=== PATIENT | male | born 1945 | race Two or more races ===

== ENCOUNTER 2022-03-06 14:50 | Inpatient (IN) | payer OTHER, MEDICAID ==
[~2022-03-06] VITALS: Ht 182.9 cm; Wt 78.5 kg
[2022-03-06] MEDS ORDERED: SODIUM CHLORIDE 0.9% 1000ML BAG (SEPSIS BOLUS) IV ONE (15:00)
[2022-03-06 15:14] LABS: BG BASE EXCESS -1.7 mmol/L (-2.0-2.0); BG CARBOXYHEMOGLOBIN 0.5 % (0.5-1.5); BG DEOXYHEMOGLOBIN 0.6 % (0.0-5.0); BG FRACTION INSPIRED OXYGEN 100; BG METHEMOGLOBIN 0.5 % (0.0-1.5); BG OXYGEN SATURATION 99.4 % (92.0-98.5); BG OXYHEMOGLOBIN 98.4 % (94.0-97.0); BG PCO2 29.3 mmHg (35.0-45.0); BG PH 7.473 (7.350-7.450); BG PO2 235.5 mmHg (75.0-100.0); BG SAMPLE SITE RIGHT RADIAL; BG TOTAL HEMOGLOBIN 11.8 g/dL (12.0-18.0); BG VENT MODE MASK - NRB
[2022-03-06 15:25] LABS: BASOPHILS % 0.4 % (0.0-2.0); EOSINOPHILS % 0.5 % (0.0-5.0); HEMATOCRIT. 34.4 % (42.0-52.0); HEMOGLOBIN. 11.4 g/dL (14.0-18.0); MEAN CORPUSCULAR HEMOGLOBIN 30.1 pg (28.0-32.0); MEAN CORPUSCULAR VOLUME 90.8 fL (80.0-94.0); MEAN PLATELET VOLUME 9.7 fl (7.4-10.4); MONOCYTES % 8.3 % (2.0-8.0); NEUTROPHILS % 73.8 % (40.0-76.0); PLATELET 117 x1000/uL (130-400); RED BLOOD CELL COUNT 3.79 mill/uL (4.7-6.1); RED CELL DISTRIBUTION WIDTH 16.4 % (11.6-14.6)
[2022-03-06 15:34] LABS: CHLORIDE 107 mEq/L (98-107)
[2022-03-06 15:36] LABS: INR 1.5; PROTHROMBIN TIME 15.2 sec (9.6-11.0)
[2022-03-06 15:45] LABS: CREATINE KINASE 48 IU/L (39-308)
[2022-03-06 15:53] LABS: CLARITY URINE CLEAR (CLEAR); COLOR URINE DARK YELLOW (YELLOW); KETONES URINE TRACE (NEGATIVE); LEUKOCYTE ESTERASE URINE NEGATIVE (NEGATIVE); NITRITE URINE NEGATIVE (NEGATIVE); OCCULT BLOOD URINE 2+ (NEGATIVE); PH URINE 7.5 (4.5-8.0); PROTEIN URINE NEGATIVE (NEGATIVE); SPECIFIC GRAVITY URINE 1.016 (1.005-1.030)
[2022-03-06] MEDS ORDERED: VANCOMYCIN 1G PREMIX 200 ML IV ONE (16:45)
[2022-03-06] MEDS ORDERED: PIPERACILLIN/TAZ 3.375G PREMIX 50 ML IV ONE (16:45)
[2022-03-06] MEDS ORDERED: SODIUM CHLORIDE 0.9% 1,000 ML IV ONE (18:45)
[2022-03-06 20:18] LABS: BG BASE EXCESS -9.2 mmol/L (-2.0-2.0); BG CARBOXYHEMOGLOBIN 0.1 % (0.5-1.5); BG FRACTION INSPIRED OXYGEN 100; BG HCO3 ACT 19.7 mmol/L (22.0-26.0); BG METHEMOGLOBIN 0.4 % (0.0-1.5); BG OXYHEMOGLOBIN 93.5 % (94.0-97.0); BG PCO2 56.5 mmHg (35.0-45.0); BG PO2 90.2 mmHg (75.0-100.0); BG SAMPLE SITE LEFT RADIAL; BG TOTAL HEMOGLOBIN 11.5 g/dL (12.0-18.0); BG VENT MODE MASK - NRB
[2022-03-06] MEDS ORDERED: NOREPINEPHRINE 8MG/250ML PMX 250 ML IV ONE (20:30)
[2022-03-06] MEDS ORDERED: NOREPINEPHRINE 8 MG in DEXT 5% WATER 242 ML IV ONE (20:30)
[2022-03-06] MEDS ORDERED: ETOMIDATE 2MG/ML 10ML VIAL IV ONE ×2 (20:42→20:45)
[2022-03-06] MEDS ORDERED: SUCCINYLCHOLINE CHLORIDE 200MG/10ML IV ONE ×2 (20:42→20:45)
[2022-03-06] MEDS ORDERED: MIDAZOLAM 100MG/100ML PMX 100 ML IV PRN (21:00)
[2022-03-06] MEDS ORDERED: MIDAZOLAM HCL 100 MG in SODIUM CHLORIDE 0.9% 100 ML IV PRN (21:30)
[2022-03-07] VITALS (79 sets, daily range): BP systolic 66–130; BP diastolic 24–68
[2022-03-07] MEDS ORDERED: IPRATROPIUM/ALBUTEROL 0.5-3(2.5)MG/3ML NEB HHN PRN
[2022-03-07] MEDS ORDERED: CLONIDINE 0.1MG TABLET PO PRN
[2022-03-07] MEDS ORDERED: ONDANSETRON HCL 4MG/2ML INJ IV PRN
[2022-03-07] MEDS ORDERED: ACETAMINOPHEN 325MG TABLET PO PRN
[2022-03-07] MEDS ORDERED: DOCUSATE SODIUM 100MG CAPSULE PO PRN
[2022-03-07] MEDS ORDERED: GUAIFENESIN 200MG/10ML SUGAR FREE UDC PO PRN
[2022-03-07] MEDS ORDERED: MAGNESIUM/ALUMINUM HYDROXIDE/SIMETHICONE 30ML UDC PO PRN
[2022-03-07] MEDS ORDERED: NOREPINEPHRINE 32 MG in DEXT 5% WATER 218 ML IV PRN (00:45)
[2022-03-07] MEDS: NOREPINEPHRINE 32 MG in DEXT 5% WATER 218 ML IV PRN ×4 (00:54→20:59)
[2022-03-07] MEDS ORDERED: CEFTRIAXONE 1 G PREMIX 50 ML IV SCH (01:00)
[2022-03-07] MEDS ORDERED: AZITHROMYCIN 500 MG in DEXT 5% WATER 250 ML IV SCH (01:00)
[2022-03-07 01:15] LABS: HEMATOCRIT 33.4 % (42.0-52.0); HEMOGLOBIN 10.8 g/dL (14.0-18.0)
[2022-03-07 01:24] LABS: BG BASE EXCESS -8.5 mmol/L (-2.0-2.0); BG CARBOXYHEMOGLOBIN 0.4 % (0.5-1.5); BG DEOXYHEMOGLOBIN 8.6 % (0.0-5.0); BG FRACTION INSPIRED OXYGEN 100; BG HCO3 ACT 18.5 mmol/L (22.0-26.0); BG METHEMOGLOBIN 0.3 % (0.0-1.5); BG OXYGEN SATURATION 91.3 % (92.0-98.5); BG OXYHEMOGLOBIN 90.7 % (94.0-97.0); BG PCO2 43.8 mmHg (35.0-45.0); BG PH 7.243 (7.350-7.450); BG PO2 69.5 mmHg (75.0-100.0); BG SAMPLE SITE RIGHT RADIAL; BG TOTAL HEMOGLOBIN 12.1 g/dL (12.0-18.0); BG VENT MODE VENT - AC
[2022-03-07 01:28] LABS: CREATINE KINASE MB FRACTION 10.3 ng/mL (0.5-3.6)
[2022-03-07] MEDS ORDERED: PANTOPRAZOLE SODIUM 40 MG/VIAL IV SCH (01:30)
[2022-03-07 02:13] LABS: FOLIC ACID (FOLATE) SERUM >20 ng/mL ng/mL (>5.38); VITAMIN B12 SERUM 1799 pg/mL (211-911)
[2022-03-07] MEDS ORDERED: PANTOPRAZOLE SODIUM 40 MG/VIAL IV NR (02:18)
[2022-03-07] MEDS ORDERED: PROPOFOL 10MG/ML 100ML 100 ML IV PRN (02:30)
[2022-03-07] MEDS ORDERED: SODIUM BICARBONATE 8.4% 1 MEQ/ML 50ML SYR IV NR (02:30)
[2022-03-07] MEDS: AZITHROMYCIN 500 MG in DEXT 5% WATER 250 ML IV SCH ×2 (02:41→03:35)
[2022-03-07] MEDS: VASOPRESSIN 20 UNIT in SODIUM CHLORIDE 0.9% 99 ML IV PRN ×3 (02:43→21:56)
[2022-03-07] MEDS ORDERED: CEFTRIAXONE 1,000 MG in DEXTROSE 5% WATER 50 ML IV SCH (03:00)
[2022-03-07] MEDS: PHENYLEPHRINE 100 MG in DEXT 5% WATER 240 ML IV PRN ×3 (03:34→18:39)
[2022-03-07 06:08] LABS: CREATINE KINASE MB FRACTION 11.7 ng/mL (0.5-3.6)
[2022-03-07 06:56] LABS: BASOPHILS % 0.3 % (0.0-2.0); HEMATOCRIT. 33.4 % (42.0-52.0); HEMOGLOBIN. 11.1 g/dL (14.0-18.0); LYMPHOCYTES % 7.4 % (20.0-50.0); MEAN CORPUSCULAR HEMOGLOBIN 30.4 pg (28.0-32.0); MEAN CORPUSCULAR VOLUME 91.8 fL (80.0-94.0); MONOCYTES % 6.8 % (2.0-8.0); NEUTROPHILS % 85.5 % (40.0-76.0); PLATELET 97 x1000/uL (130-400); RED BLOOD CELL COUNT 3.64 mill/uL (4.7-6.1); RED CELL DISTRIBUTION WIDTH 16.8 % (11.6-14.6)
[2022-03-07] MEDS ORDERED: DOPAMINE 800MG PREMIX (DOUBLE) 250 ML IV PRN ×2 (07:30→10:00)
[2022-03-07 08:09] LABS: BG CARBOXYHEMOGLOBIN 0.4 % (0.5-1.5); BG DEOXYHEMOGLOBIN 10.2 % (0.0-5.0); BG HCO3 ACT 18.7 mmol/L (22.0-26.0); BG METHEMOGLOBIN 0.3 % (0.0-1.5); BG OXYGEN SATURATION 89.7 % (92.0-98.5); BG OXYHEMOGLOBIN 89.1 % (94.0-97.0); BG PCO2 38.3 mmHg (35.0-45.0); BG PH 7.306 (7.350-7.450); BG PO2 58.9 mmHg (75.0-100.0); BG SAMPLE SITE RIGHT BRACHIAL; BG TOTAL HEMOGLOBIN 11.4 g/dL (12.0-18.0); BG VENT MODE VENT - AC
[2022-03-07 08:35] LABS: HEMATOCRIT 34.3 % (42.0-52.0); HEMOGLOBIN 11.1 g/dL (14.0-18.0)
[2022-03-07] MEDS ORDERED: SODIUM CHLORIDE 0.45% 500 ML IV ONE (09:00)
[2022-03-07] MEDS: PANTOPRAZOLE SODIUM 40 MG/VIAL IV SCH ×2 (09:06→16:08)
[2022-03-07] MEDS: FENTANYL CITRATE/PF 2,500 MCG in SODIUM CHLORIDE 0.9% 200 ML IV PRN (09:08)
[2022-03-07 10:45] LABS: CHLORIDE 112 mEq/L (98-107)
[2022-03-07 11:00] LABS: T4 FREE 1.28 ng/dL (0.76-1.46)
[2022-03-07] MEDS ORDERED: VANCOMYCIN 1.25GM PMX (XELLIA) 250 ML IV SCH (11:00)
[2022-03-07] MEDS: HYDROCORTISONE SOD SUCCINATE 100 MG/2 ML VIAL IV SCH ×3 (11:40→21:55)
[2022-03-07] MEDS ORDERED: PIPERACILLIN/TAZOBACTAM 3.375 G in DEXTROSE 5% WATER 50 ML IV SCH (13:30)
[2022-03-07 13:54] LABS: CREATINE KINASE MB FRACTION 19.9 ng/mL (0.5-3.6)
[2022-03-07] MEDS ORDERED: SODIUM CHLORIDE 0.45% 1,000 ML IV ONE (15:15)
[2022-03-07] MEDS ORDERED: MIDAZOLAM 100MG/100ML PMX 100 ML IV PRN (16:45)
[2022-03-07] MEDS ORDERED: MIDAZOLAM HCL 100 MG in SODIUM CHLORIDE 0.9% 100 ML IV PRN (17:30)
[2022-03-07] MEDS: CEFEPIME 2,000 MG in DEXT 5% WATER 100 ML IV SCH (23:15)
[2022-03-08] VITALS (116 sets, daily range): BP systolic 1–168; BP diastolic -1–68
[2022-03-08] MEDS: ACETAMINOPHEN 325MG TABLET PO PRN ×2 (00:51→13:45)
[2022-03-08] MEDS: PHENYLEPHRINE 100 MG in DEXT 5% WATER 240 ML IV PRN ×2 (00:52→09:11)
[2022-03-08] MEDS: HYDROCORTISONE SOD SUCCINATE 100 MG/2 ML VIAL IV SCH ×4 (03:19→20:40)
[2022-03-08] MEDS: DOXYCYCLINE 100 MG in DEXT 5% WATER 100 ML IV SCH ×2 (03:19→14:37)
[2022-03-08] MEDS: NOREPINEPHRINE 32 MG in DEXT 5% WATER 218 ML IV PRN ×3 (03:49→18:22)
[2022-03-08 04:53] LABS: HEMATOCRIT. 32.8 % (42.0-52.0); HEMOGLOBIN. 10.8 g/dL (14.0-18.0); MEAN CORPUSCULAR HEMOGLOBIN 30.1 pg (28.0-32.0); MEAN CORPUSCULAR VOLUME 91.3 fL (80.0-94.0); MEAN PLATELET VOLUME 10.7 fl (7.4-10.4); PLATELET 87 x1000/uL (130-400); RED BLOOD CELL COUNT 3.59 mill/uL (4.7-6.1); RED CELL DISTRIBUTION WIDTH 17.1 % (11.6-14.6)
[2022-03-08 05:02] LABS: CHLORIDE 106 mEq/L (98-107)
[2022-03-08 05:19] LABS: HAPTOGLOBIN <31.0 mg/dL (30-200)
[2022-03-08 08:55] LABS: BG BASE EXCESS -11.3 mmol/L (-2.0-2.0); BG CARBOXYHEMOGLOBIN 0.4 % (0.5-1.5); BG DEOXYHEMOGLOBIN 0.9 % (0.0-5.0); BG FRACTION INSPIRED OXYGEN 100; BG METHEMOGLOBIN 0.5 % (0.0-1.5); BG OXYGEN SATURATION 99.1 % (92.0-98.5); BG OXYHEMOGLOBIN 98.2 % (94.0-97.0); BG PCO2 41.7 mmHg (35.0-45.0); BG PH 7.203 (7.350-7.450); BG PO2 137.3 mmHg (75.0-100.0); BG SAMPLE SITE ALINE; BG TOTAL HEMOGLOBIN 11.3 g/dL (12.0-18.0); BG VENT MODE VENT - AC
[2022-03-08 09:07] LABS: HEMATOCRIT 33.3 % (42.0-52.0); HEMOGLOBIN 10.9 g/dL (14.0-18.0)
[2022-03-08] MEDS: PANTOPRAZOLE SODIUM 40 MG/VIAL IV SCH ×2 (09:47→20:40)
[2022-03-08] MEDS: SODIUM BICARBONATE 100 MEQ in SODIUM CHLORIDE 0.45% 1,000 ML IV SCH (09:47)
[2022-03-08] MEDS ORDERED: FUROSEMIDE 40MG/4ML VIAL IVP NR (10:15)
[2022-03-08] MEDS: CEFEPIME 2,000 MG in DEXT 5% WATER 100 ML IV SCH ×2 (10:31→22:03)
[2022-03-08] MEDS: VANCOMYCIN 1G PREMIX 200 ML IV SCH (11:46)
[2022-03-08 14:38] LABS: HEMATOCRIT 33.7 % (42.0-52.0); HEMOGLOBIN 10.9 g/dL (14.0-18.0)
[2022-03-08 16:44] LABS: PLATELET ESTIMATE DECREASED
[2022-03-08] MEDS: FENTANYL CITRATE/PF 2,500 MCG in SODIUM CHLORIDE 0.9% 200 ML IV PRN (22:03)
[2022-03-09] VITALS (95 sets, daily range): BP systolic 72–165; BP diastolic 38–73
[2022-03-09] MEDS: HYDROCORTISONE SOD SUCCINATE 100 MG/2 ML VIAL IV SCH ×4 (03:37→21:31)
[2022-03-09] MEDS: DOXYCYCLINE 100 MG in DEXT 5% WATER 100 ML IV SCH ×2 (03:37→15:10)
[2022-03-09 05:49] LABS: CHLORIDE 105 mEq/L (98-107)
[2022-03-09] MEDS: NOREPINEPHRINE 32 MG in DEXT 5% WATER 218 ML IV PRN (05:52)
[2022-03-09] MEDS: SODIUM BICARBONATE 100 MEQ in SODIUM CHLORIDE 0.45% 1,000 ML IV SCH (05:52)
[2022-03-09 06:01] LABS: HEMATOCRIT. 30.3 % (42.0-52.0); HEMOGLOBIN. 10.1 g/dL (14.0-18.0); MEAN CORPUSCULAR HEMOGLOBIN 29.8 pg (28.0-32.0); MEAN CORPUSCULAR VOLUME 89.6 fL (80.0-94.0); MEAN PLATELET VOLUME 10.7 fl (7.4-10.4); PLATELET 54 x1000/uL (130-400); RED BLOOD CELL COUNT 3.37 mill/uL (4.7-6.1); RED CELL DISTRIBUTION WIDTH 16.7 % (11.6-14.6)
[2022-03-09 06:05] LABS: CREATINE KINASE 375 IU/L (39-308)
[2022-03-09] MEDS ORDERED: LIDOCAINE HCL 1% 30ML VIAL (10MG/ML) ONE (08:14)
[2022-03-09 08:47] LABS: BG BASE EXCESS -1.7 mmol/L (-2.0-2.0); BG CARBOXYHEMOGLOBIN 0.2 % (0.5-1.5); BG DEOXYHEMOGLOBIN 1.3 % (0.0-5.0); BG FRACTION INSPIRED OXYGEN 70; BG HCO3 ACT 22.5 mmol/L (22.0-26.0); BG METHEMOGLOBIN 0.4 % (0.0-1.5); BG OXYGEN SATURATION 98.7 % (92.0-98.5); BG OXYHEMOGLOBIN 98.1 % (94.0-97.0); BG PH 7.413 (7.350-7.450); BG PO2 137.3 mmHg (75.0-100.0); BG SAMPLE SITE ALINE; BG TOTAL HEMOGLOBIN 10.4 g/dL (12.0-18.0); BG VENT MODE VENT - AC
[2022-03-09] MEDS: PANTOPRAZOLE SODIUM 40 MG/VIAL IV SCH ×2 (09:07→20:15)
[2022-03-09] MEDS ORDERED: MAGNESIUM 1 G PREMIX 100 ML IV SCH (10:00)
[2022-03-09] MEDS ORDERED: OSELTAMIVIR 75MG CAPSULE PO SCH (10:30)
[2022-03-09 10:31] LABS: PLATELET ESTIMATE MARKEDLY DECREASED
[2022-03-09] MEDS: OSELTAMIVIR 30MG CAPSULE PO SCH ×2 (10:40→20:15)
[2022-03-09] MEDS: CEFEPIME 2,000 MG in DEXT 5% WATER 100 ML IV SCH (10:41)
[2022-03-09] MEDS: VANCOMYCIN 1G PREMIX 200 ML IV SCH (10:41)
[2022-03-09] MEDS: IRON SUCROSE COMPLEX 100 MG/5 ML ML IV SCH (12:20)
[2022-03-09 13:00] LABS: HEMATOCRIT 30.2 % (42.0-52.0)
[2022-03-09] MEDS ORDERED: ACETYLCYSTEINE 100MG/ML 10% VIAL 4ML INH SCH (14:00)
[2022-03-09] MEDS: CEFAZOLIN 2,000 MG in DEXT 5% WATER 100 ML IV SCH (20:15)
[2022-03-09] MEDS: ALBUTEROL (0.083%) 2.5MG/3ML NEB HHN SCH (20:55)
[2022-03-10] VITALS (92 sets, daily range): BP systolic 104–159; BP diastolic 48–87
[2022-03-10] MEDS: ACETYLCYSTEINE 200MG/ML 20% VIAL 4ML INH SCH ×3 (01:25→23:02)
[2022-03-10] MEDS: ALBUTEROL (0.083%) 2.5MG/3ML NEB HHN SCH ×6 (01:25→20:52)
[2022-03-10] MEDS: DOXYCYCLINE 100 MG in DEXT 5% WATER 100 ML IV SCH ×2 (02:39→14:38)
[2022-03-10] MEDS: CEFAZOLIN 2,000 MG in DEXT 5% WATER 100 ML IV SCH ×3 (03:22→21:30)
[2022-03-10] MEDS: SODIUM BICARBONATE 100 MEQ in SODIUM CHLORIDE 0.45% 1,000 ML IV SCH (03:23)
[2022-03-10] MEDS: HYDROCORTISONE SOD SUCCINATE 100 MG/2 ML VIAL IV SCH ×3 (03:23→16:30)
[2022-03-10] MEDS: FENTANYL CITRATE/PF 2,500 MCG in SODIUM CHLORIDE 0.9% 200 ML IV PRN (03:26)
[2022-03-10 05:30] LABS: CHLORIDE 105 mEq/L (98-107)
[2022-03-10 05:34] LABS: HEMATOCRIT. 28.5 % (42.0-52.0); HEMOGLOBIN. 9.7 g/dL (14.0-18.0); MEAN CORPUSCULAR HEMOGLOBIN 29.8 pg (28.0-32.0); MEAN CORPUSCULAR VOLUME 87.6 fL (80.0-94.0); MEAN PLATELET VOLUME 9.8 fl (7.4-10.4); RED BLOOD CELL COUNT 3.26 mill/uL (4.7-6.1); RED CELL DISTRIBUTION WIDTH 16.8 % (11.6-14.6)
[2022-03-10 05:39] LABS: PLATELET 44 x1000/uL (130-400)
[2022-03-10 08:56] LABS: BG BASE EXCESS -0.3 mmol/L (-2.0-2.0); BG CARBOXYHEMOGLOBIN 0.3 % (0.5-1.5); BG DEOXYHEMOGLOBIN 2.8 % (0.0-5.0); BG FRACTION INSPIRED OXYGEN 50; BG HCO3 ACT 22.9 mmol/L (22.0-26.0); BG METHEMOGLOBIN 0.3 % (0.0-1.5); BG OXYGEN SATURATION 97.2 % (92.0-98.5); BG OXYHEMOGLOBIN 96.6 % (94.0-97.0); BG PCO2 32.4 mmHg (35.0-45.0); BG PH 7.468 (7.350-7.450); BG PO2 94.4 mmHg (75.0-100.0); BG SAMPLE SITE ALINE; BG TOTAL HEMOGLOBIN 10.1 g/dL (12.0-18.0); BG VENT MODE VENT - AC
[2022-03-10] MEDS: OSELTAMIVIR 30MG CAPSULE PO SCH ×2 (09:56→21:30)
[2022-03-10] MEDS: PANTOPRAZOLE SODIUM 40 MG/VIAL IV SCH ×2 (09:56→21:30)
[2022-03-10 11:35] LABS: PLATELET ESTIMATE MARKEDLY DECREASED
[2022-03-10] MEDS: IRON SUCROSE COMPLEX 100 MG/5 ML ML IV SCH (12:17)
[2022-03-10] MEDS: SODIUM CHLORIDE 0.45% 1,000 ML IV SCH (12:17)
[2022-03-10] MEDS ORDERED: MIDODRINE HCL 5MG TABLET PO SCH (13:00)
[2022-03-10] MEDS: RIFAMPIN 300MG CAPSULE PO SCH ×2 (14:38→22:00)
[2022-03-10] MEDS: GENTAMICIN 80MG PREMIX 100 ML IV SCH (14:38)
[2022-03-10 16:52] LABS: INR 1.3
[2022-03-10 17:20] LABS: HEPATITIS B SURFACE ANTIGEN NEGATIVE
[2022-03-11] VITALS (85 sets, daily range): BP systolic 104–174; BP diastolic 45–130
[2022-03-11] MEDS: ALBUTEROL (0.083%) 2.5MG/3ML NEB HHN SCH ×5 (00:09→20:31)
[2022-03-11] MEDS: ACETYLCYSTEINE 200MG/ML 20% VIAL 4ML INH SCH ×3 (00:11→17:10)
[2022-03-11] MEDS: GENTAMICIN 80MG PREMIX 100 ML IV SCH ×2 (02:35→13:24)
[2022-03-11] MEDS: FENTANYL CITRATE/PF 2,500 MCG in SODIUM CHLORIDE 0.9% 200 ML IV PRN (02:59)
[2022-03-11] MEDS: DOXYCYCLINE 100 MG in DEXT 5% WATER 100 ML IV SCH ×2 (03:00→15:08)
[2022-03-11] MEDS: CEFAZOLIN 2,000 MG in DEXT 5% WATER 100 ML IV SCH ×3 (04:00→20:00)
[2022-03-11] MEDS: SODIUM CHLORIDE 0.45% 1,000 ML IV SCH (04:37)
[2022-03-11 04:47] LABS: HEMATOCRIT. 28.7 % (42.0-52.0); HEMOGLOBIN. 9.6 g/dL (14.0-18.0); MEAN CORPUSCULAR HEMOGLOBIN 29.6 pg (28.0-32.0); MEAN CORPUSCULAR VOLUME 88.2 fL (80.0-94.0); MEAN PLATELET VOLUME 9.4 fl (7.4-10.4); PLATELET 51 x1000/uL (130-400); RED BLOOD CELL COUNT 3.25 mill/uL (4.7-6.1); RED CELL DISTRIBUTION WIDTH 16.9 % (11.6-14.6)
[2022-03-11 04:55] LABS: CHLORIDE 106 mEq/L (98-107)
[2022-03-11] MEDS: RIFAMPIN 300MG CAPSULE PO SCH ×3 (06:24→22:00)
[2022-03-11] MEDS: PANTOPRAZOLE SODIUM 40 MG/VIAL IV SCH ×2 (08:27→21:50)
[2022-03-11] MEDS: HYDROCORTISONE SOD SUCCINATE 100 MG/2 ML VIAL IV SCH (08:27)
[2022-03-11] MEDS: OSELTAMIVIR 30MG CAPSULE PO SCH ×2 (08:27→21:52)
[2022-03-11 10:05] LABS: BG BASE EXCESS 0.3 mmol/L (-2.0-2.0); BG CARBOXYHEMOGLOBIN 0.9 % (0.5-1.5); BG DEOXYHEMOGLOBIN 2.3 % (0.0-5.0); BG FRACTION INSPIRED OXYGEN 40; BG HCO3 ACT 24.4 mmol/L (22.0-26.0); BG METHEMOGLOBIN 0.2 % (0.0-1.5); BG OXYGEN SATURATION 97.7 % (92.0-98.5); BG OXYHEMOGLOBIN 96.6 % (94.0-97.0); BG PCO2 37.1 mmHg (35.0-45.0); BG PH 7.435 (7.350-7.450); BG PO2 96.3 mmHg (75.0-100.0); BG SAMPLE SITE ALINE; BG TOTAL HEMOGLOBIN 10.3 g/dL (12.0-18.0); BG VENT MODE VENT - AC
[2022-03-11] MEDS: IRON SUCROSE COMPLEX 100 MG/5 ML ML IV SCH (12:15)
[2022-03-11] MEDS ORDERED: POTASSIUM CHLORIDE 20MEQ/PACKET PO NR (13:00)
[2022-03-11 13:29] LABS: PLATELET ESTIMATE DECREASED
[2022-03-11 13:45] LABS: BG BASE EXCESS 0.7 mmol/L (-2.0-2.0); BG DEOXYHEMOGLOBIN 2.2 % (0.0-5.0); BG FRACTION INSPIRED OXYGEN 40; BG METHEMOGLOBIN 0.1 % (0.0-1.5); BG OXYGEN SATURATION 97.8 % (92.0-98.5); BG OXYHEMOGLOBIN 97.7 % (94.0-97.0); BG PCO2 38.9 mmHg (35.0-45.0); BG PH 7.426 (7.350-7.450); BG PO2 107.7 mmHg (75.0-100.0); BG SAMPLE SITE ALINE; BG TOTAL HEMOGLOBIN 10.1 g/dL (12.0-18.0); BG VENT MODE VENT - CPAP
[2022-03-11 18:16] LABS: BG BASE EXCESS -1.5 mmol/L (-2.0-2.0); BG CARBOXYHEMOGLOBIN 0.2 % (0.5-1.5); BG DEOXYHEMOGLOBIN 2.9 % (0.0-5.0); BG FRACTION INSPIRED OXYGEN 50; BG HCO3 ACT 22.1 mmol/L (22.0-26.0); BG METHEMOGLOBIN 0.5 % (0.0-1.5); BG OXYGEN SATURATION 97.1 % (92.0-98.5); BG OXYHEMOGLOBIN 96.4 % (94.0-97.0); BG PCO2 33.2 mmHg (35.0-45.0); BG PH 7.442 (7.350-7.450); BG SAMPLE SITE ALINE; BG TOTAL HEMOGLOBIN 10.2 g/dL (12.0-18.0); BG VENT MODE MASK - SIMPLE
[2022-03-12] VITALS (72 sets, daily range): BP systolic 86–166; BP diastolic 50–102
[2022-03-12] MEDS: GENTAMICIN 80MG PREMIX 100 ML IV SCH ×2 (02:51→13:01)
[2022-03-12] MEDS: DOXYCYCLINE 100 MG in DEXT 5% WATER 100 ML IV SCH ×2 (03:30→14:50)
[2022-03-12] MEDS: CEFAZOLIN 2,000 MG in DEXT 5% WATER 100 ML IV SCH ×3 (04:00→20:37)
[2022-03-12] MEDS: SODIUM CHLORIDE 0.45% 1,000 ML IV SCH (04:02)
[2022-03-12 04:27] LABS: HEMATOCRIT. 29.8 % (42.0-52.0); HEMOGLOBIN. 10.1 g/dL (14.0-18.0); MEAN CORPUSCULAR HEMOGLOBIN 30.2 pg (28.0-32.0); MEAN CORPUSCULAR VOLUME 88.9 fL (80.0-94.0); MEAN PLATELET VOLUME 8.8 fl (7.4-10.4); PLATELET 81 x1000/uL (130-400); RED BLOOD CELL COUNT 3.35 mill/uL (4.7-6.1); RED CELL DISTRIBUTION WIDTH 16.7 % (11.6-14.6)
[2022-03-12 04:39] LABS: CHLORIDE 109 mEq/L (98-107)
[2022-03-12 05:07] LABS: GENTAMICIN RANDOM 4.7 ug/mL
[2022-03-12] MEDS: RIFAMPIN 300MG CAPSULE PO SCH ×3 (06:00→22:00)
[2022-03-12] MEDS ORDERED: POTASSIUM CHLORIDE 20MEQ TABLET SR PO NR (07:45)
[2022-03-12 08:03] LABS: NUCLEATED RED BLOOD CELLS 1 /100 WBC
[2022-03-12 08:04] LABS: PLATELET ESTIMATE DECREASED
[2022-03-12] MEDS: OSELTAMIVIR 30MG CAPSULE PO SCH ×2 (08:19→21:00)
[2022-03-12] MEDS: PANTOPRAZOLE SODIUM 40 MG/VIAL IV SCH (08:19)
[2022-03-12] MEDS: ACETYLCYSTEINE 200MG/ML 20% VIAL 4ML INH SCH ×2 (08:44→15:22)
[2022-03-12] MEDS: ALBUTEROL (0.083%) 2.5MG/3ML NEB HHN SCH ×4 (08:44→20:14)
[2022-03-12] MEDS ORDERED: LACTULOSE 20G/30ML UDC PO NR (09:00)
[2022-03-12 10:12] LABS: BG CARBOXYHEMOGLOBIN 0.9 % (0.5-1.5); BG DEOXYHEMOGLOBIN 1.4 % (0.0-5.0); BG FRACTION INSPIRED OXYGEN 50; BG HCO3 ACT 22.8 mmol/L (22.0-26.0); BG METHEMOGLOBIN 0.2 % (0.0-1.5); BG OXYGEN SATURATION 98.6 % (92.0-98.5); BG OXYHEMOGLOBIN 97.5 % (94.0-97.0); BG PCO2 34.6 mmHg (35.0-45.0); BG PH 7.437 (7.350-7.450); BG PO2 135.7 mmHg (75.0-100.0); BG SAMPLE SITE ALINE; BG TOTAL HEMOGLOBIN 9.7 g/dL (12.0-18.0); BG VENT MODE MASK - SIMPLE
[2022-03-12] MEDS ORDERED: IPRATROPIUM/ALBUTEROL 0.5-3(2.5)MG/3ML NEB HHN NR (13:45)
[2022-03-13] VITALS (40 sets, daily range): BP systolic 99–155; BP diastolic 52–93
[2022-03-13] MEDS: ALBUTEROL (0.083%) 2.5MG/3ML NEB HHN SCH ×6 (00:13→20:27)
[2022-03-13] MEDS: ACETYLCYSTEINE 200MG/ML 20% VIAL 4ML INH SCH ×3 (00:13→15:23)
[2022-03-13] MEDS: GENTAMICIN 80MG PREMIX 100 ML IV SCH ×2 (02:00→13:15)
[2022-03-13] MEDS: DOXYCYCLINE 100 MG in DEXT 5% WATER 100 ML IV SCH (03:00)
[2022-03-13] MEDS: CEFAZOLIN 2,000 MG in DEXT 5% WATER 100 ML IV SCH ×3 (04:00→19:53)
[2022-03-13 05:43] LABS: CHLORIDE 110 mEq/L (98-107)
[2022-03-13 05:50] LABS: HEMOGLOBIN. 10.4 g/dL (14.0-18.0); MEAN CORPUSCULAR HEMOGLOBIN 30.3 pg (28.0-32.0); MEAN CORPUSCULAR VOLUME 90.1 fL (80.0-94.0); MEAN PLATELET VOLUME 8.8 fl (7.4-10.4); PLATELET 102 x1000/uL (130-400); RED BLOOD CELL COUNT 3.44 mill/uL (4.7-6.1); RED CELL DISTRIBUTION WIDTH 16.7 % (11.6-14.6)
[2022-03-13] MEDS: RIFAMPIN 300MG CAPSULE PO SCH ×3 (06:04→21:59)
[2022-03-13] MEDS: PANTOPRAZOLE 40MG DR TABLET PO SCH (06:30)
[2022-03-13] MEDS ORDERED: DEXT 5%/0.45% NACL 1000ML 1,000 ML IV ONE (08:15)
[2022-03-13] MEDS ORDERED: FUROSEMIDE 40MG/4ML VIAL IVP SCH (08:45)
[2022-03-13] MEDS: OSELTAMIVIR 30MG CAPSULE PO SCH ×2 (09:19→21:57)
[2022-03-13 09:23] LABS: BG CARBOXYHEMOGLOBIN 0.5 % (0.5-1.5); BG DEOXYHEMOGLOBIN 2.4 % (0.0-5.0); BG FRACTION INSPIRED OXYGEN 40; BG HCO3 ACT 25.3 mmol/L (22.0-26.0); BG METHEMOGLOBIN 0.6 % (0.0-1.5); BG OXYGEN SATURATION 97.6 % (92.0-98.5); BG OXYHEMOGLOBIN 96.5 % (94.0-97.0); BG PCO2 34.9 mmHg (35.0-45.0); BG PH 7.478 (7.350-7.450); BG PO2 94.7 mmHg (75.0-100.0); BG SAMPLE SITE RIGHT RADIAL; BG TOTAL HEMOGLOBIN 12.1 g/dL (12.0-18.0); BG TOTAL RESPIRATORY RATE 27 b/min; BG VENT MODE MASK - BIPAP
[2022-03-13] MEDS: GUAIFENESIN 600MG ER TABLET PO SCH ×2 (09:59→21:57)
[2022-03-13 10:38] LABS: PLATELET ESTIMATE SLIGHTLY DECREASED
[2022-03-13] MEDS ORDERED: MIDAZOLAM HCL 100 MG in SODIUM CHLORIDE 0.9% 100 ML IV PRN (17:30)
[2022-03-13] MEDS ORDERED: MIDAZOLAM 100MG/100ML PMX 100 ML IV PRN (17:30)
[2022-03-13] MEDS: METOPROLOL TARTRATE 25MG TABLET PO SCH (21:57)
[2022-03-14] VITALS (48 sets, daily range): BP systolic 97–148; BP diastolic 47–86
[2022-03-14] MEDS: ACETYLCYSTEINE 200MG/ML 20% VIAL 4ML INH SCH ×2 (00:41→08:01)
[2022-03-14] MEDS: ALBUTEROL (0.083%) 2.5MG/3ML NEB HHN SCH ×6 (00:42→20:56)
[2022-03-14] MEDS: GENTAMICIN 80MG PREMIX 100 ML IV SCH ×2 (01:39→13:49)
[2022-03-14] MEDS: CEFAZOLIN 2,000 MG in DEXT 5% WATER 100 ML IV SCH ×3 (04:10→20:48)
[2022-03-14 05:23] LABS: HEMATOCRIT. 31.2 % (42.0-52.0); HEMOGLOBIN. 10.5 g/dL (14.0-18.0); MEAN CORPUSCULAR HEMOGLOBIN 30.3 pg (28.0-32.0); MEAN CORPUSCULAR VOLUME 89.9 fL (80.0-94.0); MEAN PLATELET VOLUME 9.1 fl (7.4-10.4); PLATELET 148 x1000/uL (130-400); RED BLOOD CELL COUNT 3.47 mill/uL (4.7-6.1); RED CELL DISTRIBUTION WIDTH 16.8 % (11.6-14.6)
[2022-03-14 05:32] LABS: INR 1.6; PROTHROMBIN TIME 16.6 sec (9.6-11.0)
[2022-03-14 05:46] LABS: CHLORIDE 107 mEq/L (98-107)
[2022-03-14] MEDS: PANTOPRAZOLE 40MG DR TABLET PO SCH (05:51)
[2022-03-14] MEDS: RIFAMPIN 300MG CAPSULE PO SCH ×3 (05:51→21:43)
[2022-03-14 06:00] LABS: GENTAMICIN RANDOM 2.6 ug/mL
[2022-03-14] MEDS ORDERED: ATEN-42 MT (07:51)
[2022-03-14] MEDS ORDERED: ATOR20TA65 MT (07:51)
[2022-03-14] MEDS ORDERED: DABI150C PO (07:51)
[2022-03-14] MEDS ORDERED: POTASSIUM CHLORIDE INJ 40 MEQ in DEXT 5% WATER 250 ML IV ONE (08:00)
[2022-03-14 08:01] LABS: BG BASE EXCESS 4.5 mmol/L (-2.0-2.0); BG CARBOXYHEMOGLOBIN 1.6 % (0.5-1.5); BG DEOXYHEMOGLOBIN 3.4 % (0.0-5.0); BG HCO3 ACT 27.5 mmol/L (22.0-26.0); BG METHEMOGLOBIN 0.3 % (0.0-1.5); BG OXYGEN SATURATION 96.5 % (92.0-98.5); BG OXYHEMOGLOBIN 94.7 % (94.0-97.0); BG PCO2 34.9 mmHg (35.0-45.0); BG PH 7.514 (7.350-7.450); BG PO2 82.8 mmHg (75.0-100.0); BG SAMPLE SITE RIGHT RADIAL; BG TOTAL HEMOGLOBIN 10.9 g/dL (12.0-18.0); BG VENT MODE NASAL CANNULA
[2022-03-14] MEDS: METOPROLOL TARTRATE 25MG TABLET PO SCH (08:26)
[2022-03-14] MEDS: OSELTAMIVIR 30MG CAPSULE PO SCH ×2 (08:27→21:40)
[2022-03-14] MEDS: GUAIFENESIN 600MG ER TABLET PO SCH ×2 (08:27→21:40)
[2022-03-14] MEDS: METOPROLOL TARTRATE 50MG TABLET PO SCH ×2 (09:00→09:29)
[2022-03-14] MEDS ORDERED: FUROSEMIDE 40MG/4ML VIAL IVP SCH (09:00)
[2022-03-14] MEDS: KCL 20MEQ/100ML X 2 FOR TOTAL KCL 40MEQ/200ML IV SCH ×2 (09:16→12:58)
[2022-03-14 09:23] LABS: NUCLEATED RED BLOOD CELLS 1 /100 WBC; PLATELET ESTIMATE NORMAL
[2022-03-14] MEDS ORDERED: PROPOFOL 200MG/20ML VIAL IV ONE (10:39)
[2022-03-14] MEDS ORDERED: FENTANYL CITRATE/PF 50MCG/ML 2ML VIAL ONE (10:39)
[2022-03-14] MEDS ORDERED: MIDAZOLAM HCL 2 MG/2 ML VIAL ONE (10:40)
[2022-03-14] MEDS ORDERED: LIDOCAINE HCL 1% 10 MG/ML 10ML VIAL ONE (10:44)
[2022-03-14] MEDS ORDERED: GLYCOPYRROLATE 0.2 MG/ML 2ML VIAL ONE (10:50)
[2022-03-14] MEDS ORDERED: MAGNESIUM 2 G PREMIX 50 ML IV SCH (11:00)
[2022-03-14] MEDS: ENOXAPARIN 80MG/0.8ML SYR SUBCUT SCH ×2 (13:49→21:41)
[2022-03-14] MEDS: ATENOLOL 25MG TABLET PO SCH (21:40)
[2022-03-15] VITALS (44 sets, daily range): BP systolic 95–156; BP diastolic 45–80
[2022-03-15] MEDS: ALBUTEROL (0.083%) 2.5MG/3ML NEB HHN SCH ×5 (00:32→21:20)
[2022-03-15] MEDS: GENTAMICIN 80MG PREMIX 100 ML IV SCH ×2 (01:30→14:17)
[2022-03-15] MEDS: CEFAZOLIN 2,000 MG in DEXT 5% WATER 100 ML IV SCH ×3 (03:43→21:41)
[2022-03-15 05:32] LABS: CHLORIDE 107 mEq/L (98-107)
[2022-03-15] MEDS: PANTOPRAZOLE 40MG DR TABLET PO SCH (05:40)
[2022-03-15] MEDS: RIFAMPIN 300MG CAPSULE PO SCH ×3 (05:41→21:11)
[2022-03-15 05:54] LABS: PHOSPHORUS 3.3 mg/dL (2.5-4.9)
[2022-03-15 06:09] LABS: HEMATOCRIT. 31.5 % (42.0-52.0); HEMOGLOBIN. 10.5 g/dL (14.0-18.0); MEAN CORPUSCULAR HEMOGLOBIN 30.3 pg (28.0-32.0); MEAN CORPUSCULAR VOLUME 91.2 fL (80.0-94.0); MEAN PLATELET VOLUME 8.7 fl (7.4-10.4); PLATELET 181 x1000/uL (130-400); RED BLOOD CELL COUNT 3.46 mill/uL (4.7-6.1)
[2022-03-15] MEDS ORDERED: MAGNESIUM OXIDE 400MG TABLET PO SCH (08:00)
[2022-03-15] MEDS: GUAIFENESIN 600MG ER TABLET PO SCH ×2 (08:33→21:11)
[2022-03-15] MEDS: ATORVASTATIN CALCIUM 20MG TABLET PO SCH (08:33)
[2022-03-15] MEDS: ENOXAPARIN 80MG/0.8ML SYR SUBCUT SCH ×2 (08:34→21:10)
[2022-03-15] MEDS: ATENOLOL 25MG TABLET PO SCH ×2 (08:34→21:11)
[2022-03-15] MEDS: OSELTAMIVIR 30MG CAPSULE PO SCH ×2 (08:50→21:41)
[2022-03-15] MEDS ORDERED: MAGNESIUM 2 G PREMIX 50 ML IV NR (11:00)
[2022-03-15 11:52] LABS: PLATELET ESTIMATE NORMAL
[2022-03-15] MEDS ORDERED: DILTIAZEM HCL 30MG TABLET PO SCH (12:00)
[2022-03-15 12:57] LABS: BG CARBOXYHEMOGLOBIN 1.2 % (0.5-1.5); BG DEOXYHEMOGLOBIN 5.5 % (0.0-5.0); BG FRACTION INSPIRED OXYGEN 38; BG HCO3 ACT 27.7 mmol/L (22.0-26.0); BG METHEMOGLOBIN 0.2 % (0.0-1.5); BG OXYGEN SATURATION 94.4 % (92.0-98.5); BG OXYHEMOGLOBIN 93.1 % (94.0-97.0); BG PCO2 42.7 mmHg (35.0-45.0); BG PO2 72.7 mmHg (75.0-100.0); BG SAMPLE SITE RIGHT RADIAL; BG TOTAL HEMOGLOBIN 11.2 g/dL (12.0-18.0); BG VENT MODE NASAL CANNULA
[2022-03-15] MEDS ORDERED: DEXT 5%/0.45% NACL 1000ML 1,000 ML IV SCH (15:00)
[2022-03-15] MEDS ORDERED: DEXTROSE 5% WATER 1,000 ML IV SCH (17:00)
[2022-03-16] VITALS (8 sets, daily range): BP systolic 106–140; BP diastolic 52–70
[2022-03-16] MEDS: ALBUTEROL (0.083%) 2.5MG/3ML NEB HHN SCH ×5 (00:08→16:41)
[2022-03-16] MEDS: GENTAMICIN 80MG PREMIX 100 ML IV SCH ×2 (01:06→14:00)
[2022-03-16] MEDS: RIFAMPIN 300MG CAPSULE PO SCH ×2 (05:21→15:15)
[2022-03-16] MEDS: CEFAZOLIN 2,000 MG in DEXT 5% WATER 100 ML IV SCH ×2 (05:21→13:34)
[2022-03-16 07:55] LABS: HEMATOCRIT. 27.5 % (42.0-52.0); HEMOGLOBIN. 9.2 g/dL (14.0-18.0); MEAN CORPUSCULAR VOLUME 92.6 fL (80.0-94.0); MEAN PLATELET VOLUME 8.7 fl (7.4-10.4); PLATELET 167 x1000/uL (130-400); RED BLOOD CELL COUNT 2.97 mill/uL (4.7-6.1); RED CELL DISTRIBUTION WIDTH 16.9 % (11.6-14.6)
[2022-03-16 08:29] LABS: CHLORIDE 104 mEq/L (98-107)
[2022-03-16] MEDS ORDERED: DEXTROSE 50% WATER 50ML SYRINGE IV PRN (08:30)
[2022-03-16] MEDS ORDERED: LACTULOSE 20G/30ML UDC PO PRN (09:00)
[2022-03-16] MEDS ORDERED: NA PHOS,M-B/NA PHOS,DI-BA ENEMA 118ML PR PRN (09:00)
[2022-03-16] MEDS: OSELTAMIVIR 30MG CAPSULE PO SCH (09:00)
[2022-03-16] MEDS: ATENOLOL 25MG TABLET PO SCH (09:42)
[2022-03-16] MEDS: PANTOPRAZOLE 40MG DR TABLET PO SCH (09:42)
[2022-03-16] MEDS: GUAIFENESIN 600MG ER TABLET PO SCH (09:44)
[2022-03-16] MEDS: ENOXAPARIN 80MG/0.8ML SYR SUBCUT SCH (09:47)
[2022-03-16] MEDS: ATORVASTATIN CALCIUM 20MG TABLET PO SCH (09:54)
[2022-03-16] MEDS ORDERED: FUROSEMIDE 20MG/2ML VIAL IVP NR (12:30)
[2022-03-16] MEDS ORDERED: BUDESONIDE 0.5MG/2ML NEB HHN PRN (12:30)
[2022-03-16] MEDS: BLOOD SUGAR DIAGNOSTIC STRIP TEST SCH ×2 (12:40→18:00)
[2022-03-16] MEDS ORDERED: ACETYLCYSTEINE 200MG/ML 20% VIAL 4ML INH SCH (14:00)
[2022-03-16 16:16] LABS: PLATELET ESTIMATE NORMAL
[2022-03-17] MEDS ORDERED: PREDNISONE 20MG TABLET PO SCH (09:00)
== END 2022-03-17 | disposition short-term general hospital (02) | DRG 870 ==
LOC: ER 14:50 → MICUNO 20:58 → EDBEDREQTM 21:17 → EDBEDREQSVC 21:17 → EDBEDREQ 21:17 → MICUSO 03-09 22:16 → 5EST 03-15 15:20
PROVIDERS: ADMIT Hospitalist; ATTEND Hospitalist
PROC: 5A1955Z Respiratory Ventilation, Greater than 96 Consecutive Hours (ICD-10-PCS; principal; 2022-03-06)
PROC: 06HY33Z Insertion of Infusion Device into Lower Vein, Percutaneous Approach (ICD-10-PCS; 2022-03-06)
PROC: 0BH17EZ Insertion of Endotracheal Airway into Trachea, Via Natural or Artificial Opening (ICD-10-PCS; 2022-03-06)
PROC: 04HY32Z Insertion of Monitoring Device into Lower Artery, Percutaneous Approach (ICD-10-PCS; 2022-03-07)
PROC: 02HV33Z Insertion of Infusion Device into Superior Vena Cava, Percutaneous Approach (ICD-10-PCS; 2022-03-09)
PROC: B548ZZA Ultrasonography of Superior Vena Cava, Guidance (ICD-10-PCS; 2022-03-09)
PROC: 5A09357 Assistance with Respiratory Ventilation, Less than 24 Consecutive Hours, Continuous Positive Airway Pressure (ICD-10-PCS; 2022-03-12)
PROC: 0DB78ZX Excision of Stomach, Pylorus, Via Natural or Artificial Opening Endoscopic, Diagnostic (ICD-10-PCS; 2022-03-14)
DX: A41.01 Sepsis due to Methicillin susceptible Staphylococcus aureus (principal); J18.9 Pneumonia, unspecified organism; J96.01 Acute respiratory failure with hypoxia; R65.21 Severe sepsis with septic shock; N17.0 Acute kidney failure with tubular necrosis; I21.4 Non-ST elevation (NSTEMI) myocardial infarction; J10.08 Influenza due to other identified influenza virus with other specified pneumonia; G92.8 Other toxic encephalopathy; K29.01 Acute gastritis with bleeding; E87.4 Mixed disorder of acid-base balance; E44.1 Mild protein-calorie malnutrition; D62 Acute posthemorrhagic anemia; I42.0 Dilated cardiomyopathy; M62.82 Rhabdomyolysis; R18.8 Other ascites; D68.9 Coagulation defect, unspecified; I50.9 Heart failure, unspecified; Z20.822 Contact with and (suspected) exposure to COVID-19; I11.0 Hypertensive heart disease with heart failure; D69.6 Thrombocytopenia, unspecified; E78.5 Hyperlipidemia, unspecified; E87.6 Hypokalemia; R31.9 Hematuria, unspecified; E80.6 Other disorders of bilirubin metabolism; E88.09 Other disorders of plasma-protein metabolism, not elsewhere classified; R74.01 Elevation of levels of liver transaminase levels; D63.8 Anemia in other chronic diseases classified elsewhere; R73.9 Hyperglycemia, unspecified; I07.1 Rheumatic tricuspid insufficiency; I35.0 Nonrheumatic aortic (valve) stenosis; I48.0 Paroxysmal atrial fibrillation; Z68.23 Body mass index [BMI] 23.0-23.9, adult; Z79.899 Other long term (current) drug therapy; Z78.1 Physical restraint status; Z95.2 Presence of prosthetic heart valve; Z86.16 Personal history of COVID-19; Z79.01 Long term (current) use of anticoagulants; Z87.01 Personal history of pneumonia (recurrent); Z68.22 Body mass index [BMI] 22.0-22.9, adult
CPT/HCPCS: 31500; 36415; 36573; 36600; 71045; 76604; 76700; 80048; 80053; 80061; 80076; 80170; 80202; 81003; 82140; 82248; 82375; 82533; 82550; 82553; 82607; 82728; 82746; 82805; 82962; 83010; 83036; 83540; 83550; 83605; 83615; 83735; 83880; 84100; 84145; 84439; 84443; 84478; 84481; 84484; 85014; 85018; 85025; 85044; 85362; 85379; 85384; 86705; 86709; 86710; 86803; 86850; 86900; 87070; 87077; 87186; 87340; 87420; 87426; 87804; 88305; 92610; 93005; 93306; 93970; 94003; 94640; 94660; 94667; 97162; 97164; 97166; 97530; 99291; C1725; C9113; C9803; J0330; J0456; J0690; J0692; J0696; J1265; J1580; J1650; J1720; J1940; J2250; J2370; J2543; J2704; J3010; J3370; J3475; J3480; J3490; J7030; J7050; J7060; J7070; J7608; J7626; A5200